=== PATIENT | male | born 1970 | race Caucasian/White ===

== ENCOUNTER 2016-10-31 21:43 | Emergency (ER) | payer BC ==
[2016-10-31] MEDS ORDERED: Lidocaine 1% 20 ML MDV ONE (22:12)
[2016-10-31] MEDS ORDERED: Bacitracin Zinc 1 Packet ONE (22:36)
== END 2016-10-31 22:54 | disposition home or self-care (01) ==
LOC: NAV ERS 21:43
DX: S61.412A Laceration without foreign body of left hand, initial encounter (principal); X58.XXXA Exposure to other specified factors, initial encounter
CPT/HCPCS: 12002; J2001